=== PATIENT | female | born 1995 | race African-American/Black ===

== ENCOUNTER 2023-06-22 15:10 | Inpatient (IN) | payer OTHER, MEDICAID ==
[~2023-06-22] VITALS: Ht 160 cm; Wt 50.8 kg
[2023-06-22] MEDS: MIDAZOLAM HCL 2 MG/2 ML VIAL IM ONE (13:00)
[2023-06-22 16:43] LABS: BASOPHILS % 0.5 % (0.0-2.0); EOSINOPHILS % 1.4 % (0.0-5.0); HEMOGLOBIN. 11.4 g/dL (12.0-16.0); LYMPHOCYTES % 45.4 % (20.0-50.0); MEAN CORPUSCULAR HEMOGLOBIN 30.6 pg (28.0-32.0); MEAN CORPUSCULAR HGB CONC 33.5 g/dL (31.0-37.0); MEAN CORPUSCULAR VOLUME 91.4 fL (81.0-99.0); MEAN PLATELET VOLUME 9.3 fl (7.4-10.4); MONOCYTES % 4.8 % (2.0-8.0); NEUTROPHILS % 47.9 % (40.0-76.0); PLATELET 244 x1000/uL (130-400); RED BLOOD CELL COUNT 3.72 mill/uL (4.2-5.4); RED CELL DISTRIBUTION WIDTH 14.2 % (11.6-14.6); WHITE BLOOD COUNT 6.4 x1000/uL (4.5-11.0)
[2023-06-22 16:48] LABS: CHLORIDE 113 mEq/L (98-107); POTASSIUM 4.4 mEq/L (3.5-5.1); SODIUM 143 mEq/L (136-145)
[2023-06-22 16:49] LABS: CALCIUM 8.8 mg/dL (8.7-10.4); CARBON DIOXIDE 24 mEq/L (21-32)
[2023-06-22 16:54] LABS: CREATININE 1.1 mg/dL (0.6-1.0); GLUCOSE 78 mg/dL (70-105); HCG SCREEN NEGATIVE; UREA NITROGEN BLOOD 18 mg/dL (9-23)
[2023-06-22 16:55] LABS: ETHANOL BLOOD < 10 mg/dL (<10)
[2023-06-22 16:56] LABS: ACETAMINOPHEN < 2 ug/mL (10-30); ALANINE AMINOTRANSFERASE 15 IU/L (10-49); ALBUMIN 3.9 g/dL (3.2-4.8); ASPARTATE AMINOTRANSFERASE 22 IU/L (<34); BILIRUBIN TOTAL 0.4 mg/dL (0.1-1.0)
[2023-06-22 16:57] LABS: PROTEIN TOTAL 6.8 g/dL (6.0-8.3)
[2023-06-22] MEDS: HALOPERIDOL LACTATE 5MG/ML VIAL IM ONE (18:20)
[2023-06-22] MEDS: LACTATED RINGERS 1,000 ML IV SCH (18:21)
[2023-06-22 19:00] LABS: CLARITY URINE CLEAR (CLEAR); COLOR URINE YELLOW (YELLOW); GLUCOSE URINE NEGATIVE (NEGATIVE); KETONES URINE TRACE (NEGATIVE); LEUKOCYTE ESTERASE URINE NEGATIVE (NEGATIVE); NITRITE URINE NEGATIVE (NEGATIVE); OCCULT BLOOD URINE NEGATIVE (NEGATIVE); PROTEIN URINE NEGATIVE (NEGATIVE); SPECIFIC GRAVITY URINE 1.026 (1.005-1.030)
[2023-06-22 19:09] LABS: *AMPHETAMINES SCREEN URINE PRESUMPTIVE POSITIVE (NEGATIVE); *BARBITURATES SCREEN URINE NEGATIVE (NEGATIVE); *BENZODIAZEPINES SCREEN URINE NEGATIVE (NEGATIVE); *COCAINE SCREEN URINE NEGATIVE (NEGATIVE); CANNABINOID URINE SCREEN NEGATIVE (NEGATIVE); ECSTASY MDMA SCREEN URINE NEGATIVE (NEGATIVE); METHADONE URINE SCREEN NEGATIVE (NEGATIVE); OPIATES URINE SCREEN NEGATIVE (NEGATIVE); PHENCYCLIDINE URINE SCREEN NEGATIVE (NEGATIVE)
[2023-06-23 08:00] VITALS: BP 115/83; PULSE 86; RESP 19; TEMP 98.2
[2023-06-23] MEDS: SODIUM CHLORIDE 0.9% 1,000 ML IV SCH (09:30)
[2023-06-23] MEDS: ENOXAPARIN 40MG/0.4ML SYR SUBCUT SCH (13:00)
[2023-06-23] MEDS ORDERED: THROAT LOZENGES-BENZOCAINE/MENTH/CETYLPYRD CL LOZENGES MM PRN (18:30)
[2023-06-23 19:40] VITALS: BP 115/83; PULSE 86; RESP 19; TEMP 98.7
[2023-06-23 20:00] VITALS: BP 94/68; PULSE 81; RESP 19; TEMP 98.1
[2023-06-23 21:05] LABS: EOSINOPHILS % 2.6 % (0.0-5.0); HEMATOCRIT. 33.9 % (36.0-48.0); HEMOGLOBIN. 11.4 g/dL (12.0-16.0); LYMPHOCYTES % 58.3 % (20.0-50.0); MEAN CORPUSCULAR HEMOGLOBIN 29.9 pg (28.0-32.0); MEAN CORPUSCULAR HGB CONC 33.5 g/dL (31.0-37.0); MEAN CORPUSCULAR VOLUME 89.3 fL (81.0-99.0); MONOCYTES % 6.6 % (2.0-8.0); NEUTROPHILS % 31.5 % (40.0-76.0); PLATELET 275 x1000/uL (130-400); RED CELL DISTRIBUTION WIDTH 14.4 % (11.6-14.6); WHITE BLOOD COUNT 5.6 x1000/uL (4.5-11.0)
[2023-06-23 21:21] LABS: CHLORIDE 106 mEq/L (98-107); POTASSIUM 4.2 mEq/L (3.5-5.1); SODIUM 137 mEq/L (136-145)
[2023-06-23 21:22] LABS: CARBON DIOXIDE 25 mEq/L (21-32)
[2023-06-23 21:23] LABS: CALCIUM 8.9 mg/dL (8.7-10.4)
[2023-06-23 21:28] LABS: CREATININE 0.9 mg/dL (0.6-1.0); GLUCOSE 82 mg/dL (70-105); UREA NITROGEN BLOOD 12 mg/dL (9-23)
[2023-06-23 21:29] LABS: ALANINE AMINOTRANSFERASE 13 IU/L (10-49); ALBUMIN 3.8 g/dL (3.2-4.8)
[2023-06-23 21:30] LABS: ASPARTATE AMINOTRANSFERASE 23 IU/L (<34); BILIRUBIN TOTAL 0.6 mg/dL (0.1-1.0); PROTEIN TOTAL 6.6 g/dL (6.0-8.3)
[2023-06-24 04:00] VITALS: BP 97/57; PULSE 81; RESP 18; TEMP 97.5
[2023-06-24 08:00] VITALS: BP 91/61; PULSE 73; RESP 18; TEMP 98.2
[2023-06-24] MEDS ORDERED: ONDANSETRON 4MG ODT PO PRN ×2 (16:00→16:15)
[2023-06-24] MEDS: HALOPERIDOL LACTATE 5MG/ML VIAL IM NR (16:15)
[2023-06-24] MEDS ORDERED: HALOPERIDOL LACTATE 5MG/ML VIAL IM NR (16:15)
[2023-06-24] MEDS ORDERED: HALOPERIDOL LACTATE 5MG/ML VIAL IM PRN (16:30)
[2023-06-24 20:00] VITALS: BP 95/60; PULSE 98; RESP 20; TEMP 97.2
[2023-06-24] MEDS: MIRTAZAPINE 15MG TABLET PO SCH (20:48)
[2023-06-24] MEDS: RISPERIDONE 1MG TABLET PO SCH (20:48)
[2023-06-25] MEDS: LORAZEPAM 1MG TABLET PO PRN (13:24)
[2023-06-26 12:00] VITALS: BP 121/86; PULSE 62; RESP 20; TEMP 97.8
[2023-06-26 14:46] VITALS: BP 121/86; PULSE 62; TEMP 97.8; O2SAT 97
[2023-06-26] MEDS: RISPERIDONE 1MG TABLET PO SCH (21:00)
== END 2023-06-26 22:20 | disposition short-term general hospital (02) | DRG 92 ==
LOC: ER 15:10 → 6WST 18:41 → EDBD 18:41 → EDBEDREQ 18:42
PROVIDERS: ADMIT Internal Medicine Nephrology; ATTEND Internal Medicine Nephrology
PROC: GZ56ZZZ Individual Psychotherapy, Supportive (ICD-10-PCS; principal; 2023-06-25)
DX: G92.9 Unspecified toxic encephalopathy (principal); Z59.00 Homelessness unspecified; E86.0 Dehydration; F20.9 Schizophrenia, unspecified; F19.10 Other psychoactive substance abuse, uncomplicated; F29 Unspecified psychosis not due to a substance or known physiological condition; G47.00 Insomnia, unspecified; Z91.199 Patient's noncompliance with other medical treatment and regimen due to unspecified reason
CPT/HCPCS: 36415; 71045; 74018; 80053; 80305; 80307; 80320; 80329; 81003; 83605; 84703; 85025; 93005; 99291; J1630; J1650; J7030; G0480